=== PATIENT | female | born 1990 | race Caucasian/White ===

== ENCOUNTER 2018-12-08 10:13 | Day surgery (SDC) | payer OTHER ==
[~2018-12-08 10:13] MED LIST: CEFAZOLIN 2 GM/50 ML (PMX) 50 ML IVPB
[2018-12-08] MEDS ORDERED: FENTAnyl 50 MCG/ML VIAL IV ×2 (12:00)
[2018-12-08] MEDS ORDERED: DIPHENHYDRAMINE 50 MG INJ IV (12:00)
[2018-12-08] MEDS ORDERED: BUPIVACAINE 0.25% (MPF) 30 ML INJ (12:00)
[2018-12-08] MEDS ORDERED: ONDANSETRON 4 MG INJ IV (12:00)
[2018-12-08] MEDS ORDERED: OXYCODONE/ACETAMINOPHEN (5/325) TAB PO (12:00)
[2018-12-08] MEDS ORDERED: HYDROmorphONE 1 MG/5 ML IV SYRINGE IV ×3 (12:00)
[2018-12-08] MEDS ORDERED: MEPERIDINE 25 MG INJ IV (12:00)
[2018-12-08] MEDS ORDERED: POLYMYXIN/BACITRACIN 1L IRRIG (12:00)
[2018-12-08] MEDS ORDERED: KETOROLAC 30 MG INJ IV (12:00)
[2018-12-08] MEDS ORDERED: ROPIVACAINE 0.5 % 30 ML VIAL (12:06)
[2018-12-08] MEDS ORDERED: PROPOFOL 20 ML (12:06)
[2018-12-08] MEDS ORDERED: ROCURONIUM 50 MG INJ (12:25)
[2018-12-08] MEDS ORDERED: GLYCOPYRROLATE 0.4 MG INJ (12:25)
[2018-12-08] MEDS ORDERED: NEOSTIGMINE 3 MG/3 ML SYRINGE (12:25)
[2018-12-08] MEDS ORDERED: KETOROLAC 30 MG INJ (12:25)
[2018-12-08] MEDS ORDERED: ONDANSETRON 4 MG INJ (12:25)
[2018-12-08] MEDS ORDERED: CEFAZOLIN 1 GM INJ (12:25)
[2018-12-08] MEDS ORDERED: METOCLOPRAMIDE 10 MG INJ (12:25)
[2018-12-08] MEDS: FENTAnyl 50 MCG/ML VIAL IV (13:07)
[2018-12-08] MEDS: OXYCODONE/ACETAMINOPHEN (5/325) TAB PO (14:22)
[2018-12-08] MEDS: IBUPROFEN 800 MG TAB PO (15:18)
== END 2018-12-08 16:13 | disposition home or self-care (01) ==
LOC: SDS 10:13
DX: K43.9 Ventral hernia without obstruction or gangrene (principal)
CPT/HCPCS: 49653